=== PATIENT | female | born 1990 | race Caucasian/White ===

== ENCOUNTER 2024-08-30 13:37 | Emergency (ER) | payer SELFPAY ==
[~2024-08-30] VITALS: Ht 170.2 cm; Wt 58.1 kg
[2024-08-30] MEDS: IV NORMAL SALINE 1000 ML BAG IV ONE (17:45)
[2024-08-30 18:03] LABS: BASOPHILS % (AUTO) 0.8 % (0.0-2.0); EOSINOPHILS % (AUTO) 1.1 % (0.0-7.0); HEMATOCRIT 37.5 % (31.2-41.9); HEMOGLOBIN 12.5 g/dL (10.9-14.3); LYMPHOCYTES # (AUTO) 1.4 K/uL (0.8-4.8); LYMPHOCYTES % (AUTO) 47.7 % (20.5-51.5); MEAN CORPUSCULAR HEMOGLOBIN 29.1 uug (24.7-32.8); MEAN CORPUSCULAR HGB CONC 33 g/dL (32.3-35.6); MEAN CORPUSCULAR VOLUME 87.1 fL (75.5-95.3); MONOCYTES # (AUTO) 0.3 K/uL (0.1-1.30); MONOCYTES % (AUTO) 10.1 % (0.0-11.0); NEUTROPHILS # (AUTO) 1.2 K/uL (1.8-8.9); NEUTROPHILS % (AUTO) 40.3 % (38.5-71.5); PLATELET COUNT (AUTO) 230 K/uL (179-408)
[2024-08-30 18:07] LABS: DIFFERENTIAL COMMENT 1
[2024-08-30 18:10] LABS: CARBON DIOXIDE 28 mmol/L (21-32); CHLORIDE 108 mmol/L (98-107); CREATININE 0.7 mg/dL (0.6-1.3); GLUCOSE 95 mg/dL (74-106); POTASSIUM 3.8 mmol/L (3.5-5.1); SODIUM SERUM 145 mmol/L (136-145); UREA NITROGEN, BLOOD 13 mg/dL (7-18)
[2024-08-30 18:16] LABS: ALANINE AMINOTRANSFERASE 14 U/L (14-59); ALBUMIN 3.6 g/dL (3.4-5.0); ALKALINE PHOSPHATASE 39 U/L (50-136); ASPARTATE AMINOTRANSFERASE 12 U/L (15-37); BILIRUBIN,DIRECT 0.1 mg/dL (0.0-0.2); BILIRUBIN,TOTAL 0.6 mg/dL (0.2-1.0); LIPASE 28 U/L (16-77); TOTAL PROTEIN, SERUM 7.3 g/dL (6.4-8.2)
[2024-08-30 18:21] LABS: PREGNANCY TEST SERUM QUAN < 1 miul/L (0-6)
[2024-08-30] MEDS: IV NS 1000 ML 1,000 ML IV ONE (18:32)
[2024-08-30] MEDS ORDERED: IV NORMAL SALINE 250 ML IV ONE (18:43)
[2024-08-30] MEDS ORDERED: IOHEXOL 300MG/ML 100 ML INFUS..BTL ONE (18:43)
[2024-08-30] MEDS ORDERED: SWABABLE VALVE TRANSFER SET EA MC ONE (18:43)
[2024-08-30 22:04] VITALS: BP 99/71; TEMP 98.9; O2SAT 99
== END 2024-08-30 21:59 | disposition admitted as inpatient to this hospital (09) ==
LOC: ER 13:37
DX: R10.31 Right lower quadrant pain (principal); R10.2 Pelvic and perineal pain
CPT/HCPCS: 99285; 74177; 96360; 76856; 96361; 80076; 80048; 83690; 85025; 85730; 84702; 36415; Q9967; J7040 ×2; A4606; A4663